=== PATIENT | male | born 1965 | race Caucasian/White ===

== ENCOUNTER 2023-05-09 09:56 | Outpatient (AMB) | payer BC, SELFPAY ==
--- NOTE | 2023-05-09 09:58 | MHC.OFFWIV ---
Intake Vital Signs 05/09/23 10:07 Height 5 ft 9 in Weight 208 lb BMI 30.7 BP 170/100 H Blood Pressure Location Lt brachial Position Sitting Pulse 72 Pulse Source Pulse Oximeter Temp 98.0 F Temp Source Temporal Artery Scan Pulse Oximetry (%) 97 Oxygen Delivery Method Room Air Intake Visit Reasons: [employer]/sinus pressure(lobby) Intake Note: pt is here today for sinus pressure started 03/26/23 Patient Tobacco Use Status: Never used Tobacco Allergies No Known Allergies Allergy (Verified 05/09/23 09:59) Medication List - Last Reconciled 05/09/23 by HORTENCIA Glover atorvastatin 10 mg PO DAILY levothyroxine mcg PO prednisone prednisone 5 mg: take 8 tablets (40 mg) on Day 1; 7 tablets (35 mg) on Day 2; then decrease by 1 tablet every day until finished PO Do you need a note to return to daycare/school/sports/work: Yes HPI HPI Comments History of Present Illness Details 58-year-old male presents today complaining of right sided sinus pressure and pain. The patient had a deep dental cleaning back in February and developed similar symptoms. The dentist gave him a course of doxycycline which he took. The symptoms resolved after completing the worse but has now returned. The pain is in the right maxillary sinus radiates upward into the ethmoid sinus. Patient brought in the doxycycline and there is a refill on the prescription. He did follow up with a dentist who did a full exam and x-rays and does not feel as though this pain is coming from a dental problem PFSH Social History Patient Tobacco Use Status: Never used Tobacco Review of Systems Const Reports headache(s) ENT Reports headache(s), Reports sinus pain and Reports sinus pressure Reports dysuria, Reports urinary hesitancy and Reports urinary urgency Neuro Reports headache(s) Physical Exam Vital Signs: Last Vital Signs Temp 98.0 F 05/09/23 10:07 Pulse 72 05/09/23 10:07 BP 170/100 H 05/09/23 10:07 Pulse Ox 97 05/09/23 10:07 Oxygen Delivery Method Room Air 05/09/23 10:07 BMI result Body Mass Index 30.7 Const General: acute distress mild HEENT Head: Yes normal to inspection, Yes normocephalic and Yes atraumatic Ears: hearing grossly normal bilaterally, external ears normal, TM's normal bilaterally, TM normal on the right and TM normal on the left Face and sinus: Yes sinus tenderness (right frontal and ethmoid sinus) Mouth: Normal oral and palatal mucosa present Throat: Yes posterior oropharynx normal Eyes General: appearance normal, both eyes and all related structures Resp Effort & Inspection: normal respiratory effort Auscultation: clear to auscultation bilaterally Cardio Rate: regular rate Rhythm: regular rhythm Assessment & Plan Assessment & Plan (1) Sinusitis chronic, ethmoidal: Code(s): J32.2 - Chronic ethmoidal sinusitis Plan: Patient seemed to have chronic right-sided maxillary and ethmoid sinusitis following a deep cleaning with the laser procedure. He will take another course of doxycycline that he has left over from his dentist and I ordered a course of prednisone. I did indicate that if this does not resolve completely he needs to see revenue research analyst Plan see plan Medications: New prednisone prednisone 5 mg: take 8 tablets (40 mg) on Day 1; 7 tablets (35 mg) on Day 2; then decrease by 1 tablet every day until finished PO 48 ea 0RF Coding Level of Care Code Est Pt Level 3 (59265) Diagnoses Sinusitis chronic, ethmoidal J32.2
[2023-05-09 10:07] VITALS: BP 170/100; PULSE 72; TEMP 36.7; O2SAT 97; BMI 30.7
== END 2023-05-09 11:24 | disposition home or self-care (01) ==
PROVIDERS: Visit Provider Physician Assistant Medical
DX: J32.2 Chronic ethmoidal sinusitis (principal)
CPT/HCPCS: 99213